=== PATIENT | female | born 1985 | race African-American/Black ===

== ENCOUNTER 2018-06-26 08:31 | Emergency (ER) | payer MEDICAID ==
[~2018-06-26] VITALS: Ht 157.5 cm; Wt 77.3 kg
[2018-06-26 08:35] VITALS: BP 138/93; Ht 157.5 cm; Wt 77.3 kg
== END 2018-06-26 09:13 | disposition home or self-care (01) ==
LOC: ED 08:31
DX: J06.9 Acute upper respiratory infection, unspecified (principal)